=== PATIENT | female | born 2000 | race Caucasian/White ===

== ENCOUNTER 2023-07-08 08:20 | Emergency (ER) | payer MEDICAID, SELFPAY ==
[2023-07-08 08:26] VITALS: BP 131/81; PULSE 100; RESP 20; TEMP 37.2; O2SAT 99; BMI 31.6
--- NOTE | 2023-07-08 08:49 | CT_ITS ---
Patient: FERCHO MANZANARES Facility:?[facility] Patient ID:?[id number] Site Patient ID:?[id number] Site :?[id number] Study:?CT-ST Neck w/ 93cc [id number] 9:48:25 AM Ordering Physician:Chao Barton Final Report: INDICATION: Dental caries, mild neck swelling. TECHNIQUE: CT soft tissue of the neck was acquired with 93 mL Isovue 370 contrast. COMPARISON: None. FINDINGS: Motion degraded examination. Skull base: Unremarkable. Pharynx/Larynx/Trachea: Epiglottis is normal. Airway is patent. Adjacent soft tissues are normal. Salivary glands: Unremarkable. Thyroid gland: Unremarkable. No significant nodules. Lymph nodes: Mildly enlarged bilateral cervical lymph nodes measuring up to 1 cm. Vessels: Unremarkable for age. Bones: Multiple dental caries. Periapical lucency surrounding the right 2nd mandibular molar. No displaced fracture given limitation of patient motion. Misc: There is absence of a portion of the cartilaginous portion of the nasal septum. Mucosal thickening of the maxillary sinuses and ethmoid air cells. Lung apices: Unremarkable. IMPRESSION: 1. Motion degraded examination. 2. Multiple dental caries with periapical lucency surrounding the right 2nd mandibular molar concerning for periapical abscess. 3. No soft tissue abscess is identified. 4. Absent cartilaginous portion of the nasal septum, which may be congenital or acquired. Recommend correlation with physical examination and otolaryngology consult as indicated. 5. Mild upper cervical lymphadenopathy, nonspecific. Please note that all CT scans at this facility use dose modulation, iterative reconstruction, and/or weight-based dosing when appropriate to reduce radiation dose to as low as reasonably achievable. Dictated by Dianna Flores MD @ 07/08/2023 10:10:11 AM Signed by:?Dianna Flores MD @07/08/2023 10:10:11 AM (Electronic Signature)
[2023-07-08 09:04] LABS: Basophils Percent Auto 0.4 % (0.0-3.0); Eosinophils Percent Auto 3.4 % (0.0-7.0); Hematocrit 30.6 % (33.0-51.0); Hemoglobin* 9.6 gm/dL (12.0-16.0); Immature Granulocytes Pct Auto 1.1 %; Lymphocytes Percent Auto 11.4 % (20-44); Mean Corpuscular HGB Conc 31 gm/dL (32-36); Mean Corpuscular Hemoglobin 24 pg (26-34); Mean Corpuscular Volume 75 fL (80-100); Monocytes Percent Auto 5.9 % (0.0-11.0); Neutrophils Percent Auto 77.8 % (42.0-72.0); Platelet Count* 314 K/uL (140-440); RDW Coefficient of Variation % 14.8 % (11.5-15.5); Red Blood Count 4.07 m/uL (4.00-5.20); White Blood Count* 11.56 K/uL (4.50-11.00)
[2023-07-08 09:10] LABS: Slide Review Reflex No
[2023-07-08 09:17] LABS: Chloride* 105 mmol/L (96-114)
[2023-07-08 09:18] LABS: Potassium* 3.3 mmol/L (3.6-5.1); Sodium* 134 mmol/L (135-149)
--- NOTE | 2023-07-08 09:18 | ED.DENTAL ---
HPI - Dental/Oral General Date Seen: 07/08/23 Chief complaint: Dental/Oral/Mouth Injury/Pain Stated complaint: teeth pain/swollen jaw Time Seen by Provider: 07/08/23 08:24 Source: patient Mode of arrival: ambulatory Limitations: no limitations History of Present Illness HPI Narrative: Patient is a 22-year-old female presenting to the emergency department for neck and lip swelling. She states she has been having dental issues for while now and was willing to stay and so went to urgent care 2 days ago. At that time was placed on clindamycin. Since then she has noticed initial in improvement in her symptoms but is now having worsening face and neck swelling. She also states she feels mildly short of breath compared to baseline. She does know if it is her allergies or asthma. Does state she recently finished a course of azithromycin and prednisone for a chronic sinus infection. Does states she has a mildly sore throat. States she feels warm but no objective fevers. Denies chest pain, abdominal pain, nausea, vomiting, weakness, numbness. Does states she has also has a migraine that has been persistent for the past few days. She has had previous migraines. Currently taking clindamycin 150 mg q.i.d. but has only taking 2 or 3 total doses in 2 days Related Data Home Medications Medication Instructions Recorded Confirmed albuterol sulfate 90 mcg/actuation inhalation 06/22/23 06/22/23 aerosol inhaler (Ventolin HFA) amitriptyline PO 06/22/23 06/22/23 ascorbate calcium (vitamin C) PO 06/22/23 06/22/23 guaifenesin [Mucinex] PO 06/22/23 06/22/23 montelukast 10 mg tablet 10 mg PO QDAY 06/22/23 06/22/23 sertraline 100 mg tablet mg PO 06/22/23 06/22/23 Previous Rx's Medication Instructions Recorded albuterol sulfate 90 mcg/actuation 2 puff inhalation Q4-6H PRN 06/22/23 aerosol inhaler shortness of breath or wheezing #1 ea azithromycin 250 mg tablet See Rx Instructions PO .COMPLEX #6 06/22/23 tabs benzonatate 200 mg capsule 200 mg PO BID PRN cough #30 caps 06/22/23 prednisone 10 mg tablet 10 mg PO DIRECTED #30 tabs 04/11/24 clindamycin HCl 150 mg capsule 450 mg (3 x 150 mg) PO TID 7 days 07/08/23 #63 caps Allergies Allergy/AdvReac Type Severity Reaction Status Date / Time amoxicillin [From Augmentin] Allergy Verified 07/08/23 09:37 clavulanic acid Allergy Verified 07/08/23 09:37 [From Augmentin] latex Allergy Verified 07/08/23 09:37 Review of Systems Status of ROS: Reports: 10 or more systems reviewed and unremarkable except as noted in History and below PFSH PFS Social History Smoking Status: Current every day smoker Do you use any of these nicotine containing products: Vaping Products How often do you have a drink containing alcohol: never How often do you have six or more drinks on one occasion: Never AUDIT-C Alcohol total score: 0 Non-prescribed substance use: marijuana (any form) Exam Narrative: Exam Narrative: Const: Well-nourished, Well-developed, in mild distress Eyes: PERRL, no conjunctival injection, and symmetrical lids HENT: Atraumatic external nose and ears. Moist mucous membranes. Poor dentition with dental caries noted bilateral lower molar Neck: Symmetric, trachea midline, No thyromegaly. Bilaterally swollen submandibular lymph nodes, no notable neck or face swelling seen on exam CVS: RRR, No murmurs or gallops. Peripheral pulses 2+ and equal in all extremities RESP: Unlabored respiratory effort. Clear to auscultation bilaterally. GI: Nontender/Nondistended, No rebound or guarding. MSK:Extremities w/o deformity, Normal Active ROM Skin: Warm, Dry. No rashes or lesions. Neuro: Normal Muscle tone, No focal neurological deficits. Psych: Awake, Alert, & Oriented x3. Appropriate mood and affect. Const: Vital Signs, click to edit/add: Vital Signs - 24 hr 07/08/23 08:26 07/08/23 09:31 07/08/23 10:16 Temperature 98.9 F Pulse Rate [Right Pulse Oximeter] 100 104 H 78 Respiratory Rate 20 Blood Pressure [Ri ght Upper Arm] 131/81 Pulse Oximetry 99 99 100 Oxygen Delivery Me thod Room Air Room Air Room Air Course Vital Signs Vital signs: Initial Vital Signs Temperature 98.9 F 07/08/23 08:26 Temperature Source Temporal Artery Scan 07/08/23 08:26 Pulse Rate 100 07/08/23 08:26 Respiratory Rate 20 07/08/23 08:26 Blood Pressure 131/81 07/08/23 08:26 Blood Pressure Mean 97 07/08/23 08:26 Pulse Oximetry 99 07/08/23 08:26 Oxygen Delivery Method Room Air 07/08/23 08:26 Vital Signs Temperature 98.9 F 07/08/23 08:26 Pulse Rate 100 07/08/23 08:26 Respiratory Rate 20 07/08/23 08:26 Blood Pressure 131/81 07/08/23 08:26 Pulse Oximetry 99 07/08/23 08:26 Oxygen Delivery Method Room Air 07/08/23 08:26 Temperature 98.9 F 07/08/23 08:26 Pulse Rate 78 07/08/23 10:16 Respiratory Rate 20 07/08/23 08:26 Blood Pressure 131/81 07/08/23 08:26 Pulse Oximetry 100 07/08/23 10:16 Oxygen Delivery Method Room Air 07/08/23 10:16 Medications Administered Medications: Discontinued Medications Generic Name Dose Route Start Last Admin Trade Name Freq PRN Reason Stop Dose Admin Diphenhydramine HCl 25 mg 07/08/23 08:48 07/08/23 09:33 Diphenhydramine 50 Mg/Ml Inj IVP 07/08/23 08:49 25 mg ONCE ONE Administration Lactated Ringer's 1,000 mls @ 1,000 mls/hr 07/08/23 08:48 07/08/23 10:51 Lactated Ringers 1000 Ml IV 07/08/23 09:47 Infused .Q1H ONE Infusion Metoclopramide HCl 10 mg 07/08/23 08:48 07/08/23 09:33 Metoclopramide Hcl 5 Mg/Ml Inj IVP 07/08/23 08:49 10 mg ONCE ONE Administration MDM - Dental/Oral MDM Narrative Medical decision making narrative: Patient 22-year-old female presenting for multiple complaints. With her migraine it seems relatively minor and she has had migraines before. States the pain is tolerable and feels like a pounding sensation. I do not believe head imaging is necessary. Will treat this with a migraine cocktail. For her main complaint while at seems unlikely she has any airway swelling causing shortness of breath as I do not hear any stridor in her vital signs are stable I will do a CT scan of the neck soft tissue to rule this out. Also he CBC, BMP, test. Lab work returned with a hemoglobin 9.6. She is showing no signs of severe anemia at this time . I asked her about history of anemia she states with her 1st , who is currently [id number], she is very anemic and had to be on iron pills for 2 months past giving due to the anemia. I do not believe this needs further workup at this time. Rest of her lab work shows no concerning findings. Her test is positive so I do an hCG quantitative which came back at 11,000. Staff misread the test so CT scan was done despite positive test but in general CT scans have not been shown to have enough radiation to cause harm to the unborn fetus and CT scans of the neck are very unlikely to cause any harm to the unborn fetus. The CT scan showed no neck space abscess but there does appear to be periapical abscess of the right 2nd mandibular molar. Her clindamycin dose was increased to 450 mg 3 times a day. She is agreeable to this plan She states her last period was for 2 or 3 weeks ago but has not noticed any increased and vaginal bleeding. I do not believe I need to do ultrasound to rule out ectopic at this time as she is not having symptoms of an ectopic . I did inform her to follow-up with her OB Gyne. She is agreeable to this plan. Lab Data Labs: Lab Results 07/08/23 Range/Units 08:55 WBC 11.56 H (4.50-11.00) K/uL RBC 4.07 (4.00-5.20) m/uL Hgb 9.6 L (12.0-16.0) gm/dL Hct 30.6 L (33.0-51.0) % MCV 75 L (80-100) fL MCH 24 L (26-34) pg MCHC 31 L (32-36) gm/dL RDW Coeff of Josie 14.8 (11.5-15.5) % Plt Count 314 (140-440) K/uL Neut % (Auto) 77.8 H (42.0-72.0) % Lymph % (Auto) 11.4 L (20-44) % [place] % (Auto) 5.9 (0.0-11.0) % Eos % (Auto) 3.4 (0.0-7.0) % Baso % (Auto) 0.4 (0.0-3.0) % Neut # (Auto) 9.00 H (1.7-7.0) K/uL Lymph # (Auto) 1.30 (0.90-2.90) K/uL [place] # (Auto) 0.70 (0.00-0.90) K/UL Eos # (Auto) 0.40 (0.00-0.50) K/uL Baso # (Auto) 0.00 (0.00-0.30) K/uL Abs Immat Gran (auto) 0.10 (0.00-0.30) K/uL Imm/Tot Granulo (auto) 1.1 % Sodium 134 L (135-149) mmol/L Potassium 3.3 L (3.6-5.1) mmol/L Chloride 105 (96-114) mmol/L Carbon Dioxide 20 (20-32) mmol/L Anion Gap 9 (7-15) mEq/L BUN 8 (5-24) mg/dL Creatinine 0.4 L (0.5-1.5) mg/dL Estimated Creat Clear 195.15 Estimated GFR 142 ml/min Glucose 97 (60-115) mg/dL Calcium 8.9 (8.4-10.6) mg/dL HCG, Qual Positive (Negative) HCG, Quant 41918.00 mIU/mL Imaging Data CT scan neck soft tissue: Attestation: I have reviewed the pertinent imaging results. Radiologist's impression: 1. Motion degraded examination. 2. Multiple dental caries with periapical lucency surrounding the right 2nd mandibular molar concerning for periapical abscess. 3. No soft tissue abscess is identified. 4. Absent cartilaginous portion of the nasal septum, which may be congenital or acquired. Recommend correlation with physical examination and otolaryngology consult as indicated. 5. Mild upper cervical lymphadenopathy, nonspecific. Please note that all CT scans at this facility use dose modulation, iterative reconstruction, and/or weight-based dosing when appropriate to reduce radiation dose to as low as reasonably achievable. Dictated by Dianna Flores MD @ 07/08/2023 10:10:11 AM Discharge Plan Discharge Clinical Impression: Dental abscess Patient Disposition: Home, Self-Care Condition: Improved Instructions: Dental Abscess (ED) Additional Instructions: Is important you follow-up with a dentist. [facility] accepts all insurance and you can follow-up with them if you do not already have a dentist. Imaging does show what appears to be the beginning of a dental abscess on the right 2nd lower molar. I am increasing of clindamycin dose to 450 mg 3 times a day for 7 day. Return to emergency department for new worsening symptoms. A test was done showing you are any should follow up with OB Gyne Prescriptions: New clindamycin HCl 150 mg capsule 450 mg PO TID 7 Days Qty: 63 0RF No Action albuterol sulfate [Ventolin HFA] 90 mcg/actuation HFA aerosol inhaler inhalation guaifenesin [Mucinex] PO ascorbate calcium (vitamin C) PO montelukast 10 mg tablet 10 mg PO QDAY amitriptyline PO sertraline 100 mg tablet PO prednisone 10 mg tablet 10 mg PO DIRECTED Qty: 30 0RF Rx Instructions: Take 4 tablets by mouth on days 1-3. Take 3 tablets by mouth on days 4-6. Take 2 tablets by mouth on days 7-9. Take 1 tablet by mouth on days 10-12. azithromycin 250 mg tablet See Rx Instructions PO .COMPLEX Qty: 6 0RF Rx Instructions: For 250 mg dose pack: take 500 mg today (day 1), then 250 mg for 4 days (days 2-5) PO benzonatate 200 mg capsule 200 mg PO BID PRN (Reason: cough) Qty: 30 0RF albuterol sulfate 90 mcg/actuation HFA aerosol inhaler 2 puff inhalation Q4-6H PRN (Reason: shortness of breath or wheezing) Qty: 1 0RF Follow Up/Referrals: Tri Webster PA [Primary Care Provider] - Stand Alone Forms: [employer] Info Instructions
[2023-07-08 09:20] LABS: Creatinine* 0.4 mg/dL (0.5-1.5); Est. Creatinine Clearance* 195.15; Estimated Glomerular Filt Rate 142 ml/min
[2023-07-08 09:21] LABS: Anion Gap 9 mEq/L (7-15); Blood Urea Nitrogen* 8 mg/dL (5-24); Calcium* 8.9 mg/dL (8.4-10.6); Carbon Dioxide* 20 mmol/L (20-32); Glucose* 97 mg/dL (60-115)
[2023-07-08 09:31] VITALS: PULSE 104; O2SAT 99
[2023-07-08] MEDS: LACTATED RINGERS 1000 ML 1,000 ML IV (09:33)
[2023-07-08] MEDS: diphenhydrAMINE 50 MG/ML inj 25 MG IVP (09:33)
[2023-07-08] MEDS: METOCLOPRAMIDE HCL 5 MG/ML INJ 10 MG IVP (09:33)
[2023-07-08 09:34] LABS: HCG Qualitative Serum* Positive (Negative)
[2023-07-08 10:16] VITALS: PULSE 78; O2SAT 100
[2023-07-08 11:09] VITALS: BP 129/80; PULSE 88; RESP 20; O2SAT 100
== END 2023-07-08 11:09 | disposition home or self-care (01) ==
PROVIDERS: Emergency Provider Student in an Organized Health Care Education/Training Program; PCP Physician Assistant
DX: K04.7 Periapical abscess without sinus (principal)
CPT/HCPCS: 36415; 70491; 80048; 84702; 84703; 85025; 96374; 96375; 99283; 99284; J1200; J2765; J7120; Q9967